=== PATIENT | male | born 1990 | race Caucasian/White ===

== ENCOUNTER → 2018-02-17 17:14 | Outpatient (CLI) | payer OTHER, SELFPAY ==
--- NOTE | 2018-02-17 17:19 | DI.MRI.S_ITS ---
PROCEDURE: MR KNEE RT WO CON INDICATIONS: PAIN IN RIGHT KNEE TECHNIQUE: Noncontrast sagittal PD fast spin echo and T2 fast spin echo with fat saturation, sagittal 3-D FLASH with fat saturation; coronal T1 spin echo and PD fast spin echo with fat saturation, and axial PD fast spin echo with fat saturation through the knee. COMPARISON: None. FINDINGS: Image quality: Excellent. Menisci: The medial and lateral menisci demonstrate normal morphology and internal signal. The meniscal root ligaments appear intact. Cruciate ligaments: Patient is status post anterior cruciate ligament repair. Graft appears intact, with expected signal changes from ligamentization. No partial or full-thickness graft tears. No posterior bowing of the graft to suggest roof impingement. Femoral and tibial tunnels are in expected positions, without widening or tunnel cysts. The posterior cruciate ligament appears intact. Medial structures: The medial collateral ligament appears thickened with no evidence of MCL rupture. Finding is suggestive of low-grade MCL sprain. The posterior oblique ligament, semimembranosus tendon insertions, oblique popliteal ligament, and meniscocapsular junction appear intact. Visualized portions of the pes anserinus tendons appear intact. No abnormal bursal fluid. Lateral structures: The lateral collateral ligament, long and short heads of the biceps femoris tendon appear intact. The popliteus tendon appears normal; the popliteofibular ligament appears intact. The posterosuperior and anteroinferior popliteomeniscal fascicles appear intact. The arcuate and fabellofibular ligaments appear intact, on either side of the lateral inferior geniculate artery. Iliotibial band appears normal, without findings to suggest friction syndrome. Anterior structures: The quadriceps and patellar tendons appear intact. Patellar alignment is normal. No femoral trochlear dysplasia or ventral trochlear prominence. No edema in the infrapatellar fat pad. No localized arthrofibrosis (cyclops lesion) in the anterior intercondylar notch. Bones and cartilage: Sagittal images demonstrate no abnormal anterior tibial translation. No bone marrow contusions or fractures. Low-grade chondromalacia involving articulating cartilage overlying lateral femoral condyle as well patella cartilage slightly worse involving medial facet. Joint space: There is physiologic knee joint fluid. No Guaman's cyst. No intra-articular bodies. Normal appearing synovial plicae are incidentally noted. IMPRESSION: 1. Prior ACL repair with intact ACL graft. PCL is intact. 2. No evidence of focal meniscal tear. 3. Low-grade MCL sprain. No evidence of MCL tear. 4. Low-grade chondromalacia involving lateral femoral condyle weightbearing portion and throughout patella cartilage. No marrow edema. No fracture or dislocation. Dictated by: Cornell Estes M.D. on 02/18/2018 at 9:46 Approved by: Cornell Estes M.D. on 02/18/2018 at 9:49
== END ==
PROVIDERS: Visit Provider Family Medicine
DX: S83.411A Sprain of medial collateral ligament of right knee, initial encounter (principal); M25.561 Pain in right knee; M22.41 Chondromalacia patellae, right knee
CPT/HCPCS: 73721

== ENCOUNTER 2018-11-24 06:26 | Day surgery (SDC) | payer OTHER, SELFPAY ==
[2018-11-03 07:50] VITALS: BMI 33.5
[2018-11-24] VITALS (8 sets, daily range): BP systolic 114–142; BP diastolic 37–92; PULSE 84–104; RESP 14–20; TEMP 36.4–36.5; O2SAT 94–97; BMI 33.5
[2018-11-24] MEDS: LACTATED RINGERS 1,000 ML 100 ML IV ×2 (07:26→08:49)
--- NOTE | 2018-11-24 07:54 | PM.HP.1 ---
History of Present Illness Date Patient Seen: 11/24/18 Time Patient Seen: 07:54 Chief complaint: [id number] REPAIR UMBILICAL HERNIA W/POSS MESH Narrative: Pt seen and examened unchanged from clinic note Patient History Surgical History (Updated 10/13/18 @ 09:43 by Krysta Carballo RN) History of repair of ACL (Resolved) Social History (Updated 10/13/18 @ 09:44 by Krysta Carballo RN) household members: friend(s) occupational status: employed Smoking Status: Current every day smoker alcohol intake: current substance use type: does not use Family & Social History Social History: household members friend(s) Tobacco & Substance use: Tobacco type cigarettes,smokeless tobacco Smoking Status Current every day smoker alcohol intake current Substance Use Type does not use Meds Home Medications Medication Instructions Recorded Confirmed Type No Known Home Medications 10/13/18 11/03/18 History Allergies Allergy/AdvReac Type Severity Reaction Status Date / Time No Known Drug Allergies Allergy Unverified 10/13/18 09:41 Exam Vital Signs (past 8 hours): - 11/24/18 07:24 Temperature 97.7 F Pulse Rate 84 Respiratory Rate 15 Blood Pressure 142/92 H Pulse Oximetry 95 Oxygen Delivery Method Room Air
[2018-11-24] MEDS: CEFAZOLIN 2 GM/100 ML FROZ.PIGGY IV (08:00)
--- NOTE | 2018-11-24 08:15 | SUR.OPER ---
Supine on padded OR bed, head on pillow, arms secured on padded arm boards at <90 degrees abduction, legs uncrossed, safety belt at thigh, tape over blanket over lower legs.
[2018-11-24] MEDS: BUPIVACAINE 0.25% W/ EPI 30 ML VIAL INJ (08:22)
[2018-11-24] MEDS: VANCOMYCIN 1,000 MG VIAL 1000 MG TOP (08:36)
[2018-11-24] MEDS: fentaNYL 100 MCG/2 ML INJ 50 MCG IV (09:10)
[2018-11-24] MEDS: ONDANSETRON 4 MG/2 ML INJ IV (09:15)
--- NOTE | 2018-11-24 09:16 | SUR.PHASEI ---
to PACU awake and talking, Rx given per Dr. Johnson. Pt. rates pain 06/14. states that he feels drunk. 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
[2018-11-24] MEDS: HYDROCODONE/ACET 5/325 TABLET 1 TAB PO (09:34)
--- NOTE | 2018-11-24 09:48 | PM.OP.1 ---
Operative Date/Time/Diagnoses Date of procedure: 11/24/18 Time of procedure: 09:00 Pre-op diagnosis: umbilical hernia Post-op diagnosis: same Procedure & Clinicians Procedure: Umbilical hernia repair with placement of preperitoneal mesh Same procedure as scheduled: Yes Indications: 28-year-old man presented with a symptomatic small umbilical hernia. On clinical exam it appeared to be a piece of herniated preperitoneal fat. Patient was initially reluctant to have mesh placed but after being described the risks and benefits including risk of infection and benefit of significant reduction in hernia recurrence he elected to have reinforcing abdominal wall mesh placed. Surgeon: Enzo Maldonado Click Yes if Unassisted: Yes Anesthesia Type: General Operative Notes Findings: 1 x 5 x 1.5 cm umbilical hernia Closure Type: primary Specimen(s): none sent Prosthetic devices, grafts, tissues, transplants, or devices: cqur polypropylene umbilical hernia mesh -regular weight - 4.3cm diameter Estimated Blood Loss (mL): 5 Procedure in detail: Patient was brought to the operating room he received LMA anesthetic without incident he was prepped and draped in the usual sterile fashion a time-out was completed. A curvilinear incision was carried through the superior umbilical crown through the skin and subcutaneous tissues. The umbilical stalk was bluntly dissected around with a curved clamp and then the umbilical stalk was amputated. The skin of the umbilicus was retracted inferiorly a finger palpated the umbilical defect which was approximately 1.5 x 1.5 cm. The umbilical defect was skeletonized dissecting off some of the adherent subcutaneous fat. The herniated preperitoneal fat was reduced through the defect. The fascial edges were identified and trimmed back to healthy fascia removing a small amount of attenuated fascia. Using Allis clamps the fascial ring was then elevated and a pocket was created in the preperitoneal space. At no time was the intraperitoneal space entered. Was the preperitoneal pocket was well-developed and entire Ray-Jhoana was placed into it left for several minutes and then removed -there is no significant blood staining of the Ray-Jhoana indicating good hemostasis within the pocket. At this point to 0 PDS sutures were placed at the lateral edges of the defect. A 4.3cm piece of polypropylene mesh was then inserted into the defect within the preperitoneal pocket. Just prior to insertion it was soaked in vancomycin solution. The mesh was ensured to be well adherent to the undersurface of the fascia without any significant wrinkling. I then placed a central PDS suture at the midline catching the central area of umbilical mesh within the suture so as to prevent mesh migration. Multiple interrupted simple of 0 PDS sutures were then used to close the hernia defect in a transverse fashion. These were then individually tied for excellent primary fascial closure. The wound was then irrigated -the kya of the umbilical stalk was then approximated to the underlying fascia using a 2 0 Vicryl stitch. Local anesthetic was infiltrated to the wound. Skin was closed using 2 layers including a 200 deep dermal layer and running subcuticular 3 0 monofilament absorbable suture. Skin glue was applied the patient was extubated and brought to PACU without incident Complications: none Condition: stable Disposition: PACU Plan for aftercare: Follow-up in office
--- NOTE | 2018-11-24 09:49 | SUR.PHASEI ---
0945 To opd, report given. Bed down and locked, call light within reach. HOB up, no nausea, tolerating PO well. Resp unlabored, skin warm and dry. Stable for transfer.
== END 2018-11-24 10:38 | disposition home or self-care (01) ==
PROVIDERS: PCP Family Medicine; Visit Provider Surgery
PROC: (CPT 49585; principal; 2018-11-24 07:45)
DX: K42.9 Umbilical hernia without obstruction or gangrene (principal); E66.9 Obesity, unspecified; F17.210 Nicotine dependence, cigarettes, uncomplicated; Z68.33 Body mass index [BMI] 33.0-33.9, adult
CPT/HCPCS: 49585; C1781; J0690; J1100; J2405; J2704; J3010